=== PATIENT | female | born 1980 | race Caucasian/White ===

== ENCOUNTER → 2019-01-16 | Outpatient (CLI) | payer BC ==
[~2019-01-16] MED LIST: CALCIUM LACTAT650 MG PO; DESMOPRESSIN A0.1 MG PO; HYDROCORTISONE10 MG PO; HYDROCORTISONE5 M1 PO; LEVOXYL0.1 MG PO; ORTHO TRI-CYCLE1 TA1 PO; VITAMIN D2400 IU PO; ZOCOR 10MG10 MG PO
== END ==
LOC: COL.RAD 08:15
DX: Q04.4 Septo-optic dysplasia of brain (principal); E23.0 Hypopituitarism
CPT/HCPCS: A9585

== ENCOUNTER → 2023-10-31 | Outpatient (CLI) | payer BC | LOC: MC.RAD 13:43 | DX: Z12.31 Encounter for screening mammogram for malignant neoplasm of breast (principal) ==